=== PATIENT | male | born 1975 | race Asian ===

== ENCOUNTER 2024-04-29 16:58 | Emergency (ER) | payer BC ==
[~2024-04-29] VITALS: Ht 167.6 cm; Wt 64.4 kg
[2024-04-29 17:00] VITALS: BP_SYST 150; PULSE 119; RESP 18; TEMP 98.3; O2SAT 98
[2024-04-29 17:35] LABS: BILIRUBIN,URINE NEGATIVE (NEGATIVE); BLOOD, URINE 3+ (NEGATIVE); COLOR,URINE YELLOW (YELLOW); GLUCOSE,URINE 1+ (NEGATIVE); KETONES,URINE NEGATIVE (NEGATIVE); NITRITE, URINE NEGATIVE (NEGATIVE); PROTEIN URINE 2+ (NEGATIVE); UROBILINOGEN,URINE 0.2 (0.2-1.0)
[2024-04-29 17:41] LABS: CLARITY/URINE HAZY (CLEAR); LEUKOCYTE ESTERASE ,URINE NEGATIVE (NEGATIVE)
[2024-04-29 17:42] LABS: BACTERIA,URINE FEW /HPF (None Seen); MUCUS,URINE 1+ /LPF (None Seen); RBC,URINE 20-50 /HPF (0-3); WBC,URINE 0-3 /HPF (0-3)
[2024-04-29 18:00] LABS: BASOPHILS % (AUTO) 0.3 % (0.0-2.0); EOSINOPHILS # (AUTO) 0.1 K/uL (0.0-0.4); EOSINOPHILS % (AUTO) 0.6 % (0.0-4.0); HEMOGLOBIN 12.6 g/dL (14.0-18.0); LYMPHOCYTES # (AUTO) 0.6 K/uL (1.0-5.5); LYMPHOCYTES % (AUTO) 4.8 % (20.5-51.5); MEAN CORPUSCULAR HEMOGLOBIN 30 pg (27-31); MEAN CORPUSCULAR HGB CONC 34 % (32-36); MEAN CORPUSCULAR VOLUME 88 fL (79.0-98.0); MONOCYTES # (AUTO) 0.9 K/uL (0.0-1.0); MONOCYTES % (AUTO) 6.3 % (1.7-9.3); PLATELET COUNT (AUTO) 346 K/uL (130-430); RED BLOOD CELL COUNT(AUTO) 4.18 MIL/uL (4.2-6.2); RED CELL DISTRIBUTION WIDTH 12.8 % (9.0-15.0); WHITE BLOOD COUNT (AUTO) 13.7 K/uL (4.8-10.8)
[2024-04-29 18:07] LABS: CALCIUM 9.4 mg/dL (8.4-11.0); POTASSIUM 3.8 mmol/L (3.5-5.1)
[2024-04-29 18:08] LABS: CREATININE 1.45 mg/dL (0.55-1.30)
[2024-04-29 18:13] LABS: INR 0.9 (0.80-1.20); PROTHROMBIN TIME 9.4 SECS (9.5-12.5)
[2024-04-29] MEDS: NACL 0.9% 1,000 ML IV ONE (18:21)
[2024-04-29] MEDS: KETOROLAC TROMETHAMINE 30 MG VIAL IVP ONE (18:32)
[2024-04-29] MEDS ORDERED: TAMS-11 PO (20:15)
[2024-04-29] MEDS ORDERED: IBUP-1969 PO (20:15)
[2024-04-29] MEDS ORDERED: CIPR500T5 PO (20:15)
[2024-04-29 20:30] VITALS: BP_SYST 145; PULSE 99; RESP 18; TEMP 98.3; O2SAT 98
== END 2024-04-29 20:30 | disposition home or self-care (01) ==
LOC: SED 16:58
DX: N30.90 Cystitis, unspecified without hematuria (principal); N40.0 Benign prostatic hyperplasia without lower urinary tract symptoms; Z79.899 Other long term (current) drug therapy; Z79.2 Long term (current) use of antibiotics
CPT/HCPCS: 99285; 74176; 96374; 96361; 80048; 81001; 85025; 85610; 85730; 36415; 93005; J1885; J7030; 81000; 81015